=== PATIENT | male | born 1970 | race African-American/Black ===

== ENCOUNTER 2021-08-13 08:23 | Observation (INO) ==
[~2021-08-13 08:23] MED LIST: Buffered Lidocaine 1% SYRIN 1 ml INTRADERM ONE; DiMENhydriNATE IV 50 mg/ml 1 ml VIAL IV PUSH ONE; Famotidine IV 10 MG/ML 2 ml VIAL (20 mg) IV ONE; HYDROcodone/ACETAMIN 5/325 mg TAB PO PRN; Lactated Ringers 1000 ml BAG 1,000 ML IV SCH; Metoclopramide 5 MG/ML VIAL (10 mg) IV PRN; Naloxone 0.4 mg VIAL 0.4 mg/ml 1 ml VIAL IV PRN; Ondansetron 4 mg VIAL 2 MG/ML 2 ml VIAL IV PRN
[2021-08-13] MEDS ORDERED: ceFAZolin 2 GM in NS PREMIX 2 GM/100 ML BAG IVPB ONE ×2 (08:44)
[2021-08-13] MEDS ORDERED: Propofol 1,000 MG/100 ML BTL IV ONE (09:45)
[2021-08-13] MEDS ORDERED: Propofol 1,000 MG/100 ML BTL ONE (09:45)
[2021-08-13] MEDS ORDERED: Midazolam 2 mg/2 ml VIAL 1 mg/ml 2 ml VIAL (2 mg) ONE ×2 (09:46)
[2021-08-13] MEDS ORDERED: fentaNYL 100 mcg/2 ml 50 MCG/ML VIAL ONE ×4 (09:46→14:13)
[2021-08-13] MEDS ORDERED: Lidocaine 2% PF 5 ML VIAL ONE ×2 (09:46)
[2021-08-13] MEDS ORDERED: Dexamethasone IV 4 MG/ML VIAL 1 ml VIAL ONE ×6 (09:46→13:17)
[2021-08-13] MEDS ORDERED: Ondansetron 4 mg VIAL 2 MG/ML 2 ml VIAL IM ONE ×3 (09:46→14:13)
[2021-08-13] MEDS ORDERED: Ondansetron 4 mg VIAL 2 MG/ML 2 ml VIAL ONE ×3 (09:46→14:13)
[2021-08-13] MEDS ORDERED: Phenylephrine IV 10 MG/ML 1 ml VIAL ONE ×2 (09:46)
[2021-08-13] MEDS ORDERED: Bupivacaine 0.5% SDV PF 30ML VIAL ONE ×2 (09:47)
[2021-08-13] MEDS ORDERED: Famotidine IV 10 MG/ML 2 ml VIAL (20 mg) ONE ×2 (10:08)
[2021-08-13] MEDS ORDERED: DiMENhydriNATE IV 50 mg/ml 1 ml VIAL ONE (10:08)
[2021-08-13] MEDS ORDERED: DiMENhydriNATE IV 50 mg/ml 1 ml VIAL IM ONE (10:08)
[2021-08-13] MEDS ORDERED: Ropivacaine 5 MG/ML 20 ML VIAL 0.5% (100 MG) ONE (10:23)
[2021-08-13] MEDS ORDERED: Rocuronium 50 mg VIAL 10 mg/ml 5 ml VIAL (50 mg) ONE (10:58)
[2021-08-13] MEDS ORDERED: Propofol 10 MG/ML 20 ML BTL ONE ×4 (12:22→13:07)
[2021-08-13] MEDS ORDERED: HYDROmorphone 0.5 MG/0.5 ML SYRINGE IM ONE (13:01)
[2021-08-13] MEDS ORDERED: HYDROmorphone 0.5 MG/0.5 ML SYRINGE ONE (13:01)
[2021-08-13] MEDS ORDERED: Ondansetron ODT 4 mg TAB 4 MG TAB PO PRN (13:46)
[2021-08-13] MEDS ORDERED: diPHENhydraMINE IV 50 MG/ML 1 ml VIAL (BENADRYL) IV PRN (13:46)
[2021-08-13] MEDS ORDERED: Magnesium Hydroxide LIQ 30 ML UDC PO PRN (13:46)
[2021-08-13] MEDS ORDERED: Ondansetron 4 mg VIAL 2 MG/ML 2 ml VIAL IV PRN (13:46)
[2021-08-13] MEDS ORDERED: Lactulose 30 ml UDC PO PRN (13:46)
[2021-08-13] MEDS ORDERED: diPHENhydraMINE 25 mg TAB PO PRN (13:46)
[2021-08-13] MEDS ORDERED: Lactated Ringers 1000 ml BAG 1,000 ML IV SCH (14:00)
[2021-08-13] MEDS ORDERED: HYDROcodone/ACETAMIN 5/325 mg TAB ONE ×2 (14:13)
[2021-08-13] MEDS: fentaNYL 100 mcg/2 ml 50 MCG/ML VIAL IV PRN ×3 (14:17→14:33)
[2021-08-13] MEDS ORDERED: Lorazepam PYXIS KEY PRN (16:14)
[2021-08-13] MEDS ORDERED: LORazepam 2 mg VIAL 1 ml IV PUSH ONE (16:14)
[2021-08-13] MEDS: ceFAZolin 1 GM ADVAN 1 GM in NS 0.9% 50 ML 50 ML IVPB SCH (17:54)
[2021-08-13] MEDS: OLANzapine 5 mg TAB*ODT PO SCH (20:10)
[2021-08-13] MEDS: Magnesium Hydroxide LIQ 30 ML UDC PO SCH (20:10)
[2021-08-14] MEDS: ceFAZolin 1 GM ADVAN 1 GM in NS 0.9% 50 ML 50 ML IVPB SCH ×2 (02:27→11:55)
[2021-08-14 06:45] LABS: Hematocrit 35 % (42-52); Hemoglobin 11.3 g/dL (14.0-18.0); Mean Platelet Volume 8.2 fL (7.4-10.4); Platelet Count 248 10^3/uL (150-450)
[2021-08-14 06:54] LABS: Calcium 8.5 mg/dL (8.6-10.3)
[2021-08-14] MEDS: Magnesium Hydroxide LIQ 30 ML UDC PO SCH ×2 (10:28→22:01)
[2021-08-14] MEDS: Vitamin THERAPEUTIC TAB PO SCH (10:30)
[2021-08-14] MEDS: OLANzapine 5 mg TAB*ODT PO SCH ×2 (10:37→22:02)
[2021-08-15 04:59] LABS: Hematocrit 31 % (42-52); Hemoglobin 10.6 g/dL (14.0-18.0); Mean Platelet Volume 7.9 fL (7.4-10.4); Platelet Count 229 10^3/uL (150-450)
[2021-08-15] MEDS: Vitamin THERAPEUTIC TAB PO SCH (08:50)
[2021-08-15] MEDS: Magnesium Hydroxide LIQ 30 ML UDC PO SCH (08:50)
[2021-08-15] MEDS: OLANzapine 5 mg TAB*ODT PO SCH (08:50)
[2021-08-15] MEDS ORDERED: Polyethylene Glycol 3350 17 GM PACKET PO ONE (10:10)
[2021-08-15 10:22] LABS: Calcium 8.8 mg/dL (8.6-10.3); Potassium 3.6 mmol/L (3.5-5.0); eGFR CKD-EPI 59.5 (>60)
[2021-08-15 11:39] VITALS: BP 143/89
== END 2021-08-15 14:34 | disposition home or self-care (01) ==
LOC: INTOOBSV 08:23 → AA 08:23 → SSU 15:08
PROVIDERS: ADMIT Orthopaedic Surgery Adult Reconstructive Orthopaedic Surgery; ATTEND Orthopaedic Surgery Adult Reconstructive Orthopaedic Surgery

== ENCOUNTER 2022-08-01 12:20 | Inpatient (IN) ==
[2022-08-01] MEDS ORDERED: Al Hydrox/Mg Hydrox/Simet LIQ 30 ML UDC PO PRN (16:29)
[2022-08-01 16:56] LABS: ABS Basophils 0.1 10^3/ul (0-0.2); ABS Eosinophils 0.1 10^3/ul (0-0.6); ABS Lymphocytes 1.9 10^3/ul (1.0-4.8); ABS Monocytes 0.3 10^3/ul (0-0.8); ABS Neutrophils 2.6 10^3/ul (1.5-7.7); Eosinophil % 1.5 %; Hematocrit 40 % (42-52); Hemoglobin 12.8 g/dL (14.0-18.0); Lymphocyte % 38.1 %; Mean Corpuscular HGB Conc 32 g/dL (31-36); Mean Corpuscular Hemoglobin 28 pg (27-31); Mean Corpuscular Volume 86 fL (80-94); Mean Platelet Volume 7.4 fL (7.4-10.4); Nucleated Red Blood Cells % 0.1; Platelet Count 281 10^3/uL (150-450); Red Blood Count 4.65 10^6 /uL (4.18-5.48); Red Cell Distribution Width 15 % (10-15); White Blood Count 4.9 10^3/uL (3.5-10.8)
[2022-08-01 17:28] LABS: Potassium 3.8 mmol/L (3.5-5.0)
[2022-08-01 18:35] LABS: Albumin 3.9 g/dL (3.2-5.2); Calcium 9.1 mg/dL (8.6-10.3); Total Bilirubin 1.4 mg/dL (0.2-1.0)
[2022-08-01 18:41] LABS: Albumin/Globulin Ratio 1.9 (1-3); Creatinine, Serum 0.89 mg/dL (0.67-1.17); Globulin 2.1 g/dL (2-4); eGFR CKD-EPI 102.5 (>60)
[2022-08-01] MEDS: OLANZapine 5 mg TAB *ODT PO SCH (21:42)
[2022-08-02] MEDS: Nicotine PATCH 14 MG/24 HR PATCH TRANSDERM SCH (08:07)
[2022-08-02] MEDS: OLANZapine 5 mg TAB *ODT PO SCH ×2 (08:08→20:18)
[2022-08-02] MEDS: CMCS: Meloxicam 7.5 mg TAB (NF) PO SCH (08:09)
[2022-08-02 08:24] LABS: HDL Cholesterol 43.9 mg/dL
[2022-08-02] MEDS: MAGNESIUM 250 MG PO SCH (10:10)
[2022-08-02 16:09] LABS: TSH Ultra Thyroid Stim Horm 0.7 mcIU/mL (0.34-5.60)
[2022-08-02 16:32] LABS: Magnesium 1.6 mg/dL (1.9-2.7)
[2022-08-03] MEDS: CMCS: Meloxicam 7.5 mg TAB (NF) PO SCH (09:10)
[2022-08-03] MEDS: OLANZapine 5 mg TAB *ODT PO SCH ×2 (09:11→23:00)
[2022-08-03] MEDS: Nicotine PATCH 14 MG/24 HR PATCH TRANSDERM SCH (09:12)
[2022-08-03] MEDS: MAGNESIUM 250 MG PO SCH (09:14)
[2022-08-04] MEDS: OLANZapine 5 mg TAB *ODT PO SCH ×2 (07:21→19:59)
[2022-08-04] MEDS: Nicotine PATCH 14 MG/24 HR PATCH TRANSDERM SCH (07:23)
[2022-08-04] MEDS: CMCS: Meloxicam 7.5 mg TAB (NF) PO SCH (07:24)
[2022-08-04] MEDS: MAGNESIUM 250 MG PO SCH (07:25)
[2022-08-04] MEDS: Magnesium Chloride EC 64 mgTAB PO SCH (12:20)
[2022-08-05] MEDS: CMCS: Meloxicam 7.5 mg TAB (NF) PO SCH (08:20)
[2022-08-05] MEDS: OLANZapine 5 mg TAB *ODT PO SCH ×2 (08:22→20:11)
[2022-08-05] MEDS: Nicotine PATCH 14 MG/24 HR PATCH TRANSDERM SCH (08:33)
[2022-08-05] MEDS: Magnesium Chloride EC 64 mgTAB PO SCH (11:07)
[2022-08-06] MEDS: Nicotine PATCH 14 MG/24 HR PATCH TRANSDERM SCH (08:45)
[2022-08-06] MEDS: OLANZapine 5 mg TAB *ODT PO SCH ×2 (08:47→22:19)
[2022-08-06] MEDS: CMCS: Meloxicam 7.5 mg TAB (NF) PO SCH (08:47)
[2022-08-06] MEDS: Magnesium Chloride EC 64 mgTAB PO SCH (12:19)
[2022-08-07] MEDS: CMCS: Meloxicam 7.5 mg TAB (NF) PO SCH (07:27)
[2022-08-07] MEDS: OLANZapine 5 mg TAB *ODT PO SCH ×2 (07:29→21:37)
[2022-08-07] MEDS: Nicotine PATCH 14 MG/24 HR PATCH TRANSDERM SCH (07:30)
[2022-08-07] MEDS: Magnesium Chloride EC 64 mgTAB PO SCH (11:16)
[2022-08-07 13:34] LABS: ABS Basophils 0.1 10^3/ul (0-0.2); ABS Eosinophils 0.1 10^3/ul (0-0.6); ABS Lymphocytes 1.6 10^3/ul (1.0-4.8); ABS Monocytes 0.5 10^3/ul (0-0.8); ABS Neutrophils 3.9 10^3/ul (1.5-7.7); Eosinophil % 2.3 %; Hematocrit 40 % (42-52); Hemoglobin 13.3 g/dL (14.0-18.0); Lymphocyte % 26.4 %; Mean Corpuscular HGB Conc 33 g/dL (31-36); Mean Corpuscular Hemoglobin 28 pg (27-31); Mean Corpuscular Volume 85 fL (80-94); Mean Platelet Volume 7.2 fL (7.4-10.4); Platelet Count 282 10^3/uL (150-450); Red Blood Count 4.75 10^6 /uL (4.18-5.48); Red Cell Distribution Width 15 % (10-15); White Blood Count 6.2 10^3/uL (3.5-10.8)
[2022-08-08] MEDS: CMCS: Meloxicam 7.5 mg TAB (NF) PO SCH (09:12)
[2022-08-08] MEDS: Nicotine PATCH 14 MG/24 HR PATCH TRANSDERM SCH (09:13)
[2022-08-08] MEDS: OLANZapine 5 mg TAB *ODT PO SCH (09:13)
[2022-08-08] MEDS: Magnesium Chloride EC 64 mgTAB PO SCH (10:51)
[2022-08-08] MEDS ORDERED: OLANZapine 5 mg TAB *ODT PO SCH (21:00)
[2022-08-09] MEDS: Nicotine PATCH 14 MG/24 HR PATCH TRANSDERM SCH (09:04)
[2022-08-09] MEDS: CMCS: Meloxicam 7.5 mg TAB (NF) PO SCH (09:06)
[2022-08-09 09:19] LABS: Magnesium 1.8 mg/dL (1.9-2.7)
[2022-08-09] MEDS: Magnesium Chloride EC 64 mgTAB PO SCH (11:03)
[2022-08-09] MEDS ORDERED: OLANZapine 10 mg TAB*ODT PO SCH (21:00)
[2022-08-10] MEDS: CMCS: Meloxicam 7.5 mg TAB (NF) PO SCH (08:53)
[2022-08-10] MEDS: Nicotine PATCH 14 MG/24 HR PATCH TRANSDERM SCH (08:53)
[2022-08-10] MEDS: Magnesium Chloride EC 64 mgTAB PO SCH (11:54)
[2022-08-11] MEDS: CMCS: Meloxicam 7.5 mg TAB (NF) PO SCH (08:05)
[2022-08-11] MEDS: Nicotine PATCH 14 MG/24 HR PATCH TRANSDERM SCH (08:06)
[2022-08-11] MEDS: Magnesium Chloride EC 64 mgTAB PO SCH (11:47)
[2022-08-12] MEDS: Nicotine PATCH 14 MG/24 HR PATCH TRANSDERM SCH (07:44)
[2022-08-12] MEDS: CMCS: Meloxicam 7.5 mg TAB (NF) PO SCH (08:31)
[2022-08-12] MEDS: Magnesium Chloride EC 64 mgTAB PO SCH (11:51)
[2022-08-12 14:31] LABS: ABS Basophils 0.1 10^3/ul (0-0.2); ABS Eosinophils 0.1 10^3/ul (0-0.6); ABS Lymphocytes 1.7 10^3/ul (1.0-4.8); ABS Monocytes 0.6 10^3/ul (0-0.8); ABS Neutrophils 4.5 10^3/ul (1.5-7.7); Eosinophil % 1.7 %; Hematocrit 41 % (42-52); Hemoglobin 13.3 g/dL (14.0-18.0); Mean Corpuscular HGB Conc 33 g/dL (31-36); Mean Corpuscular Hemoglobin 28 pg (27-31); Mean Corpuscular Volume 85 fL (80-94); Mean Platelet Volume 7.3 fL (7.4-10.4); Nucleated Red Blood Cells % 0.1; Platelet Count 293 10^3/uL (150-450); Red Cell Distribution Width 15 % (10-15)
[2022-08-13] MEDS: Nicotine PATCH 14 MG/24 HR PATCH TRANSDERM SCH ×2 (07:34→07:40)
[2022-08-13] MEDS: CMCS: Meloxicam 7.5 mg TAB (NF) PO SCH (07:35)
[2022-08-13] MEDS: Magnesium Chloride EC 64 mgTAB PO SCH (11:30)
[2022-08-14] MEDS: Nicotine PATCH 14 MG/24 HR PATCH TRANSDERM SCH (08:03)
[2022-08-14] MEDS: CMCS: Meloxicam 7.5 mg TAB (NF) PO SCH (08:06)
[2022-08-14] MEDS: Magnesium Chloride EC 64 mgTAB PO SCH (11:16)
[2022-08-15] MEDS: Nicotine PATCH 14 MG/24 HR PATCH TRANSDERM SCH (08:17)
[2022-08-15] MEDS: CMCS: Meloxicam 7.5 mg TAB (NF) PO SCH (08:21)
[2022-08-15 08:38] VITALS: BP 149/102
[2022-08-15] MEDS: Magnesium Chloride EC 64 mgTAB PO SCH (12:08)
== END 2022-08-15 13:27 | disposition home or self-care (01) | DRG 750 ==
LOC: ED 12:20 → EDHOLD 16:29 → BSU 20:48
PROVIDERS: ADMIT Psychiatry & Neurology Psychiatry; ATTEND Psychiatry & Neurology Psychiatry